=== PATIENT | male | born 1950 ===

== ENCOUNTER 2018-09-18 21:40 | Emergency (ER) | payer OTHER, MEDICARE ==
--- NOTE | 2018-09-18 21:52 | Emergency Department Report ---
Blank Doc - Documentation Documentation: This is a 67-year-old male that presents with uncontrolled HTN. Patient denies any symptoms. Denies any headache. This initial assessment/diagnostic orders/clinical plan/treatment(s) is/are subject to change based on patient's health status, clinical progression and re-assessment by fellow clinical providers in the ED. Further treatment and workup at subsequent clinical providers discretion. Patient/guardians urged not to elope from the ED as their condition may be serious if not clinically assessed and managed. Initial orders include: 1- Patient sent to [facility] for further evaluation and treatment 2- labs
[2018-09-18 22:48] LABS: Basophils # (Auto) 0.1 K/mm3 (0.0-0.1); Basophils % (Auto) 0.6 % (0.0-1.8); Eosinophils # (Auto) 0.2 K/mm3 (0.0-0.4); Hematocrit 44.6 % (35.5-45.6); Hemoglobin 14.7 gm/dl (11.8-15.2); Lymphocytes % (Auto) 32.4 % (13.4-35.0); Mean Corpuscular HGB Conc 33 % (32-34); Mean Corpuscular Volume 86 fl (84-94); Monocytes # (Auto) 0.6 K/mm3 (0.0-0.8); Monocytes % (Auto) 6.4 % (0.0-7.3); Platelet Count 217 K/mm3 (140-440); Red Blood Count 5.16 M/mm3 (3.65-5.03); Red Cell Distribution Width 15.7 % (13.2-15.2)
[2018-09-18 22:59] LABS: BUN/Creatinine Ratio 18; Blood Urea Nitrogen 18 mg/dL (9-20); Calcium 8.6 mg/dL (8.4-10.2); Hemolysis Index 4
--- NOTE | 2018-09-19 01:05 | Emergency Department Report ---
ED General Adult HPI - General Chief complaint: High BP Stated complaint: HYPERTENSION REACTION Time Seen by Provider: 09/18/18 21:49 Source: patient Mode of arrival: Ambulatory Limitations: No Limitations - History of Present Illness Initial comments: This is a 67-year-old male who presents with evaluation of elevated blood pressure. Past medical history of diabetes type 2 and hypertension. Patient states he went to [facility] 1 week ago for left wrist pain and was diagnosed with tendinitis. He was started on naproxen which he assumes e levation in blood pressure. Patient states this happened before with taken naproxen. He is visiting here from [place] via were. 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 He is requesting clearance to return to work and home in [place]. He denies chest pain, shortness of breath, dizziness, visual changes, palpitations. -: This afternoon Severity scale (0 -10): 6 Improves with: none Worsens with: none Associated Symptoms: denies other symptoms Treatments Prior to Arrival: other (prescribed blood pressure medication, carvedilol and lisinopril.) - Related Data Allergies Allergy/AdvReac Type Severity Reaction Status Date / Time naproxen AdvReac Unknown Verified 09/18/18 21:52 ED Review of Systems ROS: Stated complaint: HYPERTENSION REACTION Other details as noted in HPI Constitutional: denies: chills, fever Respiratory: denies: cough, shortness of breath, wheezing Cardiovascular: denies: chest pain, palpitations Endocrine: no symptoms reported Gastrointestinal: denies: abdominal pain, nausea, diarrhea Skin: denies: rash, lesions Neurological: denies: headache, weakness, paresthesias Psychiatric: denies: anxiety, depression ED Past Medical Hx - Past Medical History Previous Medical History?: Yes Hx Hypertension: Yes Hx Diabetes: Yes - Surgical History Past Surgical History?: No - Social History Smoking Status: Current Every Day Smoker Substance Use Type: None ED Physical Exam - General Limitations: No Limitations General appearance: alert, in no apparent distress, obese - Respiratory Respiratory exam: Present: normal lung sounds bilaterally. Absent: respiratory distress - Cardiovascular Cardiovascular Exam: Present: regular rate, normal rhythm. Absent: systolic murmur, diastolic murmur, rubs, gallop - GI/Abdominal GI/Abdominal exam: Present: soft, normal bowel sounds - Neurological Exam Neurological exam: Present: alert, oriented X3, normal gait - Psychiatric Psychiatric exam: Present: normal affect, normal mood - Skin Skin exam: Present: warm, dry, intact, normal color. Absent: rash ED Course Vital Signs 09/18/18 09/19/18 21:49 01:14 Temperature 98.6 F Pulse Rate 58 L 51 L Respiratory 18 18 Rate Blood Pressure 212/87 Blood Pressure 166/68 [Right] O2 Sat by Pulse 96 95 Oximetry ED Medical Decision Making - Lab Data Result diagrams: 09/18/18 21:55 09/18/18 21:55 Lab Results 09/18/18 09/18/18 Range/Units 21:55 21:55 WBC 9.4 (4.5-11.0) K/mm3 RBC 5.16 H (3.65-5.03) M/mm3 Hgb 14.7 (11.8-15.2) gm/dl Hct 44.6 (35.5-45.6) % MCV 86 (84-94) fl MCH 29 (28-32) pg MCHC 33 (32-34) % RDW 15.7 H (13.2-15.2) % Plt Count 217 (140-440) K/mm3 Lymph % (Auto) 32.4 (13.4-35.0) % Ripley % (Auto) 6.4 (0.0-7.3) % Eos % (Auto) 2.0 (0.0-4.3) % Baso % (Auto) 0.6 (0.0-1.8) % Lymph # 3.0 (1.2-5.4) K/mm3 Ripley # 0.6 (0.0-0.8) K/mm3 Eos # 0.2 (0.0-0.4) K/mm3 Baso # 0.1 (0.0-0.1) K/mm3 Seg Neutrophils % 58.6 (40.0-70.0) % Seg Neutrophils # 5.5 (1.8-7.7) K/mm3 Sodium 140 (137-145) mmol/L Potassium 4.1 (3.6-5.0) mmol/L Chloride 102.7 (98-107) mmol/L Carbon Dioxide 25 (22-30) mmol/L Anion Gap 16 mmol/L BUN 18 (9-20) mg/dL Creatinine 1.0 (0.8-1.5) mg/dL Estimated GFR > 60 ml/min BUN/Creatinine Ratio 18 % Glucose 89 (75-100) mg/dL Calcium 8.6 (8.4-10.2) mg/dL - Medical Decision Making This is a 67 y.o. male that presents with an elevated blood pressure. History of HTN and diabetes type 2. Patient is stable and was examined by me. Patient is asymptomatic. 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 Given medication while [facility]. Obtained BMP and CBC are both unremarkable. Blood pressure 166/68. 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 Instructed to continue taking carvedilol and lisinopril as prescribed by PCP. Discussed plan with patient and agreed to plan. No further questions noted by the patient. Discharged home in stable condition. Follow up with PCP. Critical care attestation.: If time is entered above; I have spent that time in minutes in the direct care of this critically ill patient, excluding procedure time. ED Disposition Clinical Impression: Asymptomatic hypertensive urgency Disposition: DC- TO HOME OR SELFCARE Is pt being admited?: No Does the pt Need Aspirin: No Condition: Stable Instructions: Chronic Hypertension (ED) Additional Instructions: Encourage stop smoking to reduce cardiovascular risk. Moderate caffeine consumption is acceptable. Begin and maintain aerobic exercise, with a goal of at least 30 minutes of moderate intensity, dynamic aerobic exercise (walking, jogging, cycling, or swimming) 5 days per week to total 150 minutes as tolerated or recommended by a physician. Take medication daily as prescribed. Follow up with Primary Care Provider. Referrals: MADY MYRICK [Other] - 3-5 Days Forms: Work/School Release Form(ED) Time of Disposition: 01:30
[2018-09-19 01:15] VITALS: BP 166/68
== END 2018-09-19 01:35 | disposition home or self-care (01) ==
LOC: ED 21:40
DX: I10 Essential (primary) hypertension (principal); E11.9 Type 2 diabetes mellitus without complications; F17.200 Nicotine dependence, unspecified, uncomplicated
CPT/HCPCS: 36415; 80048; 85025